=== PATIENT | female | born 1970 | race Caucasian/White ===

== ENCOUNTER 2024-01-12 13:21 | Emergency (ER) | payer MEDICAID ==
[~2024-01-12] VITALS: Ht 175.3 cm; Wt 103.0 kg
[2024-01-12 13:25] VITALS: BP 139/87; PULSE 76; RESP 18; TEMP 98.7; O2SAT 100
[2024-01-12 14:04] LABS: BASOPHILS % 0.5 % (0.0-2.0); EOSINOPHILS % 3.4 % (0.0-5.0); HEMATOCRIT. 33.9 % (36.0-48.0); HEMOGLOBIN. 11.7 g/dL (12.0-16.0); LYMPHOCYTES % 41.3 % (20.0-50.0); MEAN CORPUSCULAR HEMOGLOBIN 32.4 pg (28.0-32.0); MEAN CORPUSCULAR HGB CONC 34.5 g/dL (31.0-37.0); MEAN PLATELET VOLUME 6.8 fl (7.4-10.4); MONOCYTES % 6.1 % (2.0-8.0); NEUTROPHILS % 48.7 % (40.0-76.0); PLATELET 309 x1000/uL (130-400); RED CELL DISTRIBUTION WIDTH 13.4 % (11.6-14.6); WHITE BLOOD COUNT 4.9 x1000/uL (4.5-11.0)
[2024-01-12 14:16] LABS: CHLORIDE 106 mEq/L (98-107); POTASSIUM 4.3 mEq/L (3.5-5.1); SODIUM 140 mEq/L (136-145)
[2024-01-12 14:17] LABS: CARBON DIOXIDE 28 mEq/L (21-32); HCG SCREEN NEGATIVE
[2024-01-12 14:22] LABS: CREATININE 0.7 mg/dL (0.6-1.0); GLUCOSE 78 mg/dL (70-105); UREA NITROGEN BLOOD 9 mg/dL (9-23)
[2024-01-12 14:24] LABS: ALANINE AMINOTRANSFERASE 11 IU/L (10-49); ASPARTATE AMINOTRANSFERASE 16 IU/L (<34); BILIRUBIN TOTAL 0.3 mg/dL (0.1-1.0); PROTEIN TOTAL 7.3 g/dL (6.0-8.3)
[2024-01-12] MEDS: ONDANSETRON HCL 4MG/2ML INJ IV STA (14:48)
[2024-01-12] MEDS: SODIUM CHLORIDE 0.9% 1,000 ML IV ONE (14:49)
[2024-01-12] MEDS: KETOROLAC 30MG/ML VIAL IV STA (14:49)
[2024-01-12] MEDS: AMPICILLIN SOD/SULBACTAM NA 1.5 G in SODIUM CHLORIDE 0.9% 50 ML IV SCH (15:17)
[2024-01-12] MEDS ORDERED: OFLO5DRO4 LEFT EAR (16:25)
[2024-01-12] MEDS ORDERED: NAPR220C61 MT (16:25)
[2024-01-12] MEDS ORDERED: AMOX1TAB16 MT (16:30)
== END 2024-01-12 16:57 | disposition home or self-care (01) ==
LOC: ER 13:21
DX: H66.92 Otitis media, unspecified, left ear (principal); H92.02 Otalgia, left ear
CPT/HCPCS: 80053; 84703; 85025; 36415; 70491; 96365; 96375; 99285; J0295; J1885; J2405; J7030; Z7610 ×2